=== PATIENT | male | born 1980 | race Caucasian/White ===

== ENCOUNTER 2019-05-12 10:03 | Observation (INO) | payer BC ==
--- NOTE | 2019-05-12 10:24 | ED ---
Abdominal Pain HPI - General Chief Complaint: Abdominal Pain Stated Complaint: Abdominal/Back pain Time Seen by Provider: 05/12/19 10:22 Source: patient Mode of arrival: ambulatory Limitations: no limitations - History of Present Illness Initial Comments: 39-year-old male with no severe past medical history lifetime nonsmoker presents emergency department today for chief complaint of right-sided flank/right upper quadrant pain that radiates to the right shoulder. Patient sates monied began developing pain that is mostly in the right flank back he states it radiated to be admitted towards shoulder and right side of abdomen. Patient states he initi ally strained a muscle. Symptoms were persistent patient states when he took a deep breath the pain in the right upper quadrant. Patient denies any nausea or vomiting. He states he has had some loose stools with greasy foods, denies fevers. Patient denies ripp tearing sensation, stabbing sensation he states he is a strong ache that at time increases with positions such as lying on left side. Patient denies chest pain, denies SOB. Denies hemoptysis, leg swelling, history of cancer. Patient denies any congenital abnormalities or familial history of premature CAD or vascular disorders. Patient appears well on arrival no distress. VS stable no significant changes. Stable. - Related Data Home Medications Medication Instructions Recorded Confirmed Acetaminophen Tab [Tylenol Tab] 1,000 mg PO Q6HR PRN 05/12/19 05/12/19 Allergies Allergy/AdvReac Type Severity Reaction Status Date / Time No Known Allergies Allergy Verified 05/12/19 15:22 Review of Systems ROS Statement: Those systems with pertinent positive or pertinent negative responses have been documented in the HPI. ROS Other: All systems not noted in ROS Statement are negative. Past Medical History Past Medical History: No Reported History History of Any Multi-Drug Resistant Organisms: None Reported Additional Past Surgical History / Comment(s): left hand suger Past Psychological History: No Psychological Hx Reported Smoking Status: Never smoker Past Alcohol Use History: Occasional Past Drug Use History: None Reported General Exam - General Exam Comments Initial Comments: General: The patient is awake and alert, in no distress Eye: +3 mm pupils are equal, round and reactive to light, extra-ocular movements are intact. No nystagmus. There is normal conjunctiva bilaterally. No signs of icterus. Ears, nose, mouth and throat: There are moist mucous membranes and no oral lesions. Neck: The neck is supple, there is no tenderness or JVD. Cardiovascular: There is a regular rate and rhythm. No murmur, rub or gallop is appreciated. Respiratory: Lungs are clear to auscultation, respirations are non-labored, breath sounds are equal. No wheezes, stridor, rales, or rhonchi. Gastrointestinal: Soft, non-distended,mild RUQ tenderness to palpation of the abdomen without masses or organomegaly noted. There is no rebound or guarding present. No CVA tenderness. Musculoskeletal: Normal ROM, no tenderness. Strength 5/5. Sensation intact. Radial and DP pulses equal bilaterally 2+. No paravertebral midline tenderness to patient the spine. Neurological: A&O x 3. CN II-XII intact grossly, There are no obvious motor or sensory deficits. Coordination appears grossly intact. Speech is normal. Skin: Skin is warm and dry and no rashes or lesions are noted. No LE edema. Psychiatric: Cooperative, appropriate mood & affect, normal judgment. Limitations: no limitations Course Vital Signs 05/12/19 05/12/19 10:10 14:24 Temperature 97.8 F Pulse Rate 56 L 55 L Respiratory 19 18 Rate Blood Pressure 133/84 129/89 O2 Sat by Pulse 99 99 Oximetry Medical Decision Making - Medical Decision Making 39-year-old male presents emergency department today for chief complaint of right-sided flank right upper quadrant pain that radiates towards right shoulder. Ongoing since Tuesday. CXR clear. CT negative of abdomen pelvis- no renal stones/urtheral stones. No hematuria. Ekg no acute findings. Troponin (-). No tachycardia. No hypoxia. B/l BP equal. US no signs of acute cholecystitis. Patient continues to have discomfort and states that he is no comfortable going home. Patient case discussed at length with attending he reviewed EKG at this time we will admit for intractable pain and patient agreeable with discussed surgical consultation for HIDA scan. Serial troponins added although i do feel atypical CP is a much less likely diagnosis given age, RF and clinical presentation. - Lab Data Result diagrams: 05/12/19 10:45 05/12/19 10:45 Lab Results 05/12/19 05/12/19 05/12/19 Range/Units 10:45 10:45 10:45 WBC 6.7 (3.8-10.6) k/uL RBC 5.58 (4.30-5.90) m/uL Hgb 16.8 (13.0-17.5) gm/dL Hct 51.1 (39.0-53.0) % MCV 91.6 (80.0-100.0) fL MCH 30.1 (25.0-35.0) pg MCHC 32.9 (31.0-37.0) g/dL RDW 12.4 (11.5-15.5) % Plt Count 317 (150-450) k/uL Neutrophils % 67 % Lymphocytes % 20 % Monocytes % 6 % Eosinophils % 5 % Basophils % 1 % Neutrophils # 4.5 (1.3-7.7) k/uL Lymphocytes # 1.3 (1.0-4.8) k/uL Monocytes # 0.4 (0-1.0) k/uL Eosinophils # 0.3 (0-0.7) k/uL Basophils # 0.1 (0-0.2) k/uL D-Dimer (<0.60) mg/L FEU Sodium 142 (137-145) mmol/L Potassium 5.0 (3.5-5.1) mmol/L Chloride 102 (98-107) mmol/L Carbon Dioxide 29 (22-30) mmol/L Anion Gap 11 mmol/L BUN 20 (9-20) mg/dL Creatinine 0.92 (0.66-1.25) mg/dL Est GFR (CKD-EPI)AfAm >90 (>60 ml/min/1.73 sqM) Est GFR (CKD-EPI)NonAf >90 (>60 ml/min/1.73 sqM) Glucose 100 H (74-99) mg/dL Calcium 10.1 (8.4-10.2) mg/dL Total Bilirubin 0.9 (0.2-1.3) mg/dL AST 27 (17-59) U/L ALT 29 (21-72) U/L Alkaline Phosphatase 67 (38-126) U/L Troponin I (0.000-0.034) ng/mL Total Protein 8.3 H (6.3-8.2) g/dL Albumin 4.9 (3.5-5.0) g/dL Lipase (23-300) U/L Urine Color Yellow Urine Appearance Clear (Clear) Urine pH 5.5 (5.0-8.0) Ur Specific Carbon 1.024 (1.001-1.035) Urine Protein Negative (Negative) Urine Glucose (UA) Negative (Negative) Urine Ketones Negative (Negative) Urine Blood Negative (Negative) Urine Nitrite Negative (Negative) Urine Bilirubin Negative (Negative) Urine Urobilinogen <2.0 (<2.0) mg/dL Ur Leukocyte Esterase Small H (Negative) Urine RBC 1 (0-5) /hpf Urine WBC 9 H (0-5) /hpf Urine Mucus Rare H (None) /hpf 05/12/19 05/12/19 05/12/19 Range/Units 10:45 10:45 10:50 WBC (3.8-10.6) k/uL RBC (4.30-5.90) m/uL Hgb (13.0-17.5) gm/dL Hct (39.0-53.0) % MCV (80.0-100.0) fL MCH (25.0-35.0) pg MCHC (31.0-37.0) g/dL RDW (11.5-15.5) % Plt Count (150-450) k/uL Neutrophils % % Lymphocytes % % Monocytes % % Eosinophils % % Basophils % % Neutrophils # (1.3-7.7) k/uL Lymphocytes # (1.0-4.8) k/uL Monocytes # (0-1.0) k/uL Eosinophils # (0-0.7) k/uL Basophils # (0-0.2) k/uL D-Dimer 0.55 (<0.60) mg/L FEU Sodium (137-145) mmol/L Potassium (3.5-5.1) mmol/L Chloride (98-107) mmol/L Carbon Dioxide (22-30) mmol/L Anion Gap mmol/L BUN (9-20) mg/dL Creatinine (0.66-1.25) mg/dL Est GFR (CKD-EPI)AfAm (>60 ml/min/1.73 sqM) Est GFR (CKD-EPI)NonAf (>60 ml/min/1.73 sqM) Glucose (74-99) mg/dL Calcium (8.4-10.2) mg/dL Total Bilirubin (0.2-1.3) mg/dL AST (17-59) U/L ALT (21-72) U/L Alkaline Phosphatase (38-126) U/L Troponin I <0.012 (0.000-0.034) ng/mL Total Protein (6.3-8.2) g/dL Albumin (3.5-5.0) g/dL Lipase 111 (23-300) U/L Urine Color Urine Appearance (Clear) Urine pH (5.0-8.0) Ur Specific Carbon (1.001-1.035) Urine Protein (Negative) Urine Glucose (UA) (Negative) Urine Ketones (Negative) Urine Blood (Negative) Urine Nitrite (Negative) Urine Bilirubin (Negative) Urine Urobilinogen (<2.0) mg/dL Ur Leukocyte Esterase (Negative) Urine RBC (0-5) /hpf Urine WBC (0-5) /hpf Urine Mucus (None) /hpf Disposition Clinical Impression: Right flank pain, Back pain, Shoulder pain, right, Intractable pain, Right upper quadrant pain Disposition: ADMITTED IP TO THIS [facility] Condition: Good Instructions (If sedation given, give patient instructions): Abdominal Pain (ED) Additional Instructions: Please use medication as discussed. Please follow-up with family doctor in the next 2 days. Please return to emergency room if the symptoms increase or worsen or for any other concerns. Is patient prescribed a controlled substance at d/c from ED?: No Referrals: Sandra Best DO [Primary Care Provider] - 1-2 days Time of Disposition: 14:56
[2019-05-12] MEDS ORDERED: MORPHINE SULFATE 4 MG/ML SYRINGE IVP STA (11:01)
[2019-05-12 11:06] LABS: Basophils # (A) 0.1 k/uL (0-0.2); Basophils % (A) 1 %; Eosinophils # (A) 0.3 k/uL (0-0.7); Eosinophils % (A) 5 %; HCT 51.1 % (39.0-53.0); HGB 16.8 gm/dL (13.0-17.5); Lymphocytes # (A) 1.3 k/uL (1.0-4.8); Lymphocytes % (A) 20 %; MCH 30.1 pg (25.0-35.0); MCHC 32.9 g/dL (31.0-37.0); MCV 91.6 fL (80.0-100.0); Mean Platelet Volume 6.7; Monocytes # (A) 0.4 k/uL (0-1.0); Monocytes % (A) 6 %; Neutrophils # (A) 4.5 k/uL (1.3-7.7); Neutrophils % (A) 67 %; Platelet Count 317 k/uL (150-450); RBC 5.58 m/uL (4.30-5.90); RDW 12.4 % (11.5-15.5); WBC 6.7 k/uL (3.8-10.6)
[2019-05-12 11:15] LABS: ALT 29 U/L (21-72); AST 27 U/L (17-59); African American GFR (CKD) >90 (>60 ml/min/1.73 sqM); Albumin 4.9 g/dL (3.5-5.0); Alkaline Phosphatase 67 U/L (38-126); Anion Gap 11 mmol/L; Blood Urea Nitrogen 20 mg/dL (9-20); Calcium 10.1 mg/dL (8.4-10.2); Carbon Dioxide 29 mmol/L (22-30); Chloride 102 mmol/L (98-107); Glucose 100 mg/dL (74-99); Non-African American GFR(CKD) >90 (>60 ml/min/1.73 sqM); Sodium 142 mmol/L (137-145); Total Bilirubin 0.9 mg/dL (0.2-1.3); Total Protein 8.3 g/dL (6.3-8.2)
[2019-05-12 11:16] LABS: Appearance,Urine Clear (Clear); Bilirubin,Urine Negative (Negative); Blood,Urine Negative (Negative); Color,Urine Yellow; Glucose,Urine (UA) Negative (Negative); Ketones,Urine Negative (Negative); Leukocyte Esterase,Urine Small (Negative); Mucus,Urine Rare /hpf; Nitrite,Urine Negative (Negative); PH, Urine 5.5 (5.0-8.0); Protein,Urine Negative (Negative); RBC,Urine 1 /hpf (0-5); Specific Gravity,Urine 1.024 (1.001-1.035); Urobilinogen,Urine <2.0 mg/dL (<2.0); WBC,Urine 9 /hpf (0-5)
--- NOTE | 2019-05-12 12:20 | CT ---
EXAMINATION TYPE: CT abdomen pelvis w con DATE OF EXAM: 05/12/2019 COMPARISON: None HISTORY: RUQ and Rt flank pain CT DLP: 943.8 mGycm Automated exposure control for dose reduction was used. TECHNIQUE: Helical acquisition of images was performed from the lung bases through the pelvis. CONTRAST: Performed without Oral Contrast and with IV Contrast, patient injected with 100 mL of Isovue 300. FINDINGS: The lung bases are clear. No cardiac enlargement or pericardial effusion. The liver, spleen, pancreas, and adrenal glands are within normal limits. No calcified gallstones. Symmetric renal enhancement without hydronephrosis. No perinephric inflammation. No dilated bowel, free air, or free fluid. No mesenteric inflammatory changes. No suspicious adenopat hy. Normal course and caliber of the aorta. No aggressive osseous lesion. Broad left L5 transverse process articulating with the sacrum. Mild L4- L5 disc degeneration. Bilateral CAM morphology. IMPRESSION: No acute intra-abdominal process.
--- NOTE | 2019-05-12 12:29 | XR ---
EXAMINATION TYPE: XR chest 2V DATE OF EXAM: 05/12/2019 COMPARISON: CT same date HISTORY: Right-sided flank pain, back pain TECHNIQUE: Frontal and lateral views of the chest are obtained. FINDINGS: There is no focal air space opacity, pleural effusion, or pneumothorax seen. The cardiac silhouette size is within normal limits. The osseous structures are intact, there is an underlying scoliotic curvature to the spine, pectus deformity. IMPRESSION: No acute cardiopulmonary process.
[2019-05-12] MEDS ORDERED: HYDROmorphone 0.5 MG/0.5 ML SYRINGE IVP STA (13:25)
--- NOTE | 2019-05-12 14:48 | US ---
EXAMINATION TYPE: US abdomen limited DATE OF EXAM: 05/12/2019 COMPARISON: NONE CLINICAL HISTORY: Gallbladder. RUQ pain. EXAM MEASUREMENTS: Liver Length: 15.3 cm Gallbladder Wall: .3 cm CBD: .2 cm Right Kidney: 10.6 x 5.5 x 3.6 cm Pancreas: Head is within normal limits, tail is obscured by overlying bowel gas. Liver: Within normal limits Gallbladder: No cholelithiasis or wall thickening. Evidence for sonographic Curry's sign: No CBD: Within normal limits. Right Kidney: Within normal limits. IMPRESSION: Negative right upper quadrant ultrasound. No sonographic evidence for acute cholecystitis .
[2019-05-12] MEDS ORDERED: NALOXONE 0.4 MG/ML 1 ML VIAL IV PRN (15:09)
[2019-05-12] MEDS: SODIUM CHLORIDE 0.9% 1,000 ML IV SCH (16:17)
[2019-05-12 16:56] VITALS: BMI 25.6
[2019-05-12] MEDS: HYDROmorphone 0.5 MG/0.5 ML SYRINGE IVP PRN ×2 (17:04→21:40)
[2019-05-13] MEDS ORDERED: ALPRAZolam 0.25 MG TAB PO PRN (00:22)
[2019-05-13] MEDS ORDERED: TEMAZEPAM 15 MG CAP PO PRN (00:22)
[2019-05-13] MEDS ORDERED: HYDROcodone/APAP 5-325MG 1 EACH TAB PO PRN (00:22)
[2019-05-13] MEDS ORDERED: methylPREDNISolone SOD SUCCI 125 MG/2 ML VIAL IV SCH (00:30)
[2019-05-13] MEDS: SODIUM CHLORIDE 0.9% 1,000 ML IV SCH ×3 (01:46→22:58)
[2019-05-13] MEDS: HYDROmorphone 0.5 MG/0.5 ML SYRINGE IVP PRN ×3 (01:46→08:24)
--- NOTE | 2019-05-13 03:58 | HP ---
HISTORY AND PHYSICAL I am covering for Dr. Maldonado. DATE OF SERVICE: 05/12/2019 CHIEF COMPLAINTS: Severe pain of the right chest wall, right upper quadrant and also the right shoulder. HISTORY OF PRESENT ILLNESS: This 39-year-old gentleman with a past medical history of multiple medical problems including skin disorder, sleep apnea, tone deafness, history of bronchitis, history of ringworm, history of apnea, sleep apnea, history of DJD being followed by Dr. Sandra Best in the outpatient setting, not feeling well over the past several days. The patient became sick since Tuesday. The patient is complaining of right -sided pain. It started in the flank and right upper quadrant pain which is also radiated to the back and now the patient is also complaining of sharp sort of pain in the right shoulder area as well. The patient reports the pain is increasing with inspirations and coughing and the patient thought initially patient strained muscle and the patient came to [facility] and admitted for further evaluation and treatment. There is no history of fever, rigors. No history of sick contacts. No history of any hematochezia, melena or shortness of breath at this time. After admission, evaluation showed normal CBC and glucose 100 and total protein is 8.3. Troponins are negative at this time. UA showed some WBCs and an abdominal pelvis CAT scan was done which showed which was reviewed by personally by me showed no acute abnormality. HIDA scan has been ordered to rule out the possible gallbladder disease. A chest x-ray was also ordered which again I reviewed personally, showed no acute cardiopulmonary process. Abdominal ultrasound was also done which showed no sonographic evidence of cholecystitis at this time. PAST MEDICAL HISTORY: History of skin disorder, history of sleep apnea, history of DJD. MEDICATIONS: Home medications are Tylenol. ALLERGIES: None. FAMILY HISTORY: No history of heart disease or strokes in family. SOCIAL HISTORY: Previous history of smoking. No history of alcohol intake. REVIEW OF SYSTEMS: ENT: No diminished vision. No diminished hearing. CARDIOVASCULAR system is as mentioned earlier. RESPIRATORY: As mentioned earlier. GASTROINTESTINAL: As mentioned earlier. no dysuria or hematuria. NERVOUS SYSTEM: No numbness or weakness. ALLERGY/IMMUNOLOGY: No asthma or hayfever. MUSCULOSKELETAL as mentioned earlier. HEMATOLOGY/ONCOLOGY: No history of anemia. ENDOCRINE: No history of diabetes or hypothyroidism. CONSTITUTIONAL: As mentioned earlier. DERMATOLOGY: Negative. RHEUMATOLOGY negative. PSYCHIATRY as mentioned earlier. PHYSICAL EXAMINATION: The patient is alert and oriented times three. Pulse 64, blood pressure 118/71, respirations 16, temperature 97.7, pulse ox 98% on room air. HEENT is conjunctivae normal. Oral mucosa moist. NECK is no jugular venous distention. No carotid bruit. No lymph node enlargement. CARDIOVASCULAR system: S1, S2 muffled. No S3, no S4. RESPIRATION: Breath sounds diminished in the bases. A few scattered rhonchi. No crackles. On the right side, breath sounds diminished markedly. ABDOMEN: Soft. Mild diffuse tenderness in the right upper quadrant. Otherwise, mild guarding but no rigidity. No mass palpable. No ascites. Bowel sounds present. LEGS: No edema. No swelling. NERVOUS SYSTEM: Higher functions as mentioned earlier. Moves all four limbs. No focal motor or sensory deficits. LYMPHATICS: No lymph nodes palpable in the neck, axillae or groin. SKIN: No ulcer, rash or bleeding. JOINTS: No active deforming arthropathy. LABS: At this time reviewed and showed: Labs are x-ray and CT scan reviewed personally by me, suggestive of minimal right-sided lesions, suspicious. Labs: CBC within normal limits and glucose 100 and total protein is 8.3. ASSESSMENT: 1. Severe right-sided lower chest upper and abdominal pain, rule out acute cholecystitis. 2. Possible right pleurisy with right pneumonia. 3. Increased WBC in the urine, rule out urinary tract infection. 4. History of sleep apnea. 5. History of bronchitis. 6. History of ringworm. 7. History of apnea. 8. History of degenerative joint disease. 9. Remote history of nicotine dependence. RECOMMENDATIONS AND DISCUSSION: This 39-year-old gentleman who presented with multiple complex medical issues, at this time, I recommend to continue current medications, management and symptomatic treatment. I recommend broad-spectrum IV antibiotics, symptomatic treatment of the pain. IV fluids. Otherwise I would also recommend ESR and CRP, HIDA scan has been pending at this time. I would also recommend short course of IV steroids because of severe pain and possible 2 pleurisy, blood cultures also will be obtained. Surgical evaluation also has been sought. The prognosis guarded because of multiple complex medical issues. Further recommendations to follow. A copy of dictation being forwarded to Dr. Maldonado who is following for Dr. Sandra Best's patients in the hospital. MMODL / IJN: [id number] /
[2019-05-13 07:23] VITALS: RESP 18
[2019-05-13] MEDS ORDERED: INSULIN ASPART (NovoLOG) 100 UNIT/ML VIAL SQ SCH (07:30)
[2019-05-13] MEDS: HEPARIN SODIUM,PORCINE 5,000 UNIT/ML 1 ML VIAL SQ SCH ×2 (08:14→20:18)
[2019-05-13] MEDS: PANTOPRAZOLE 40 MG/10 ML VIAL IVP SCH (08:14)
--- NOTE | 2019-05-13 11:26 | P.GSCN ---
History of Present Illness Consult date: 05/13/19 History of present illness: 39-year-old male presents to the emergency department with complaints of right flank, right upper quadrant and right shoulder pain. He states that the pain started approximately 7 days ago and worsened throughout the week which was the reason for his presentation to the emergency department. He denies any recent changes in diet. He denies any nausea or vomiting. He initially believed this to be a muscle strain and did try hot tub therapy along with a deep tissue massage without any success. He denies ever having this pain previously. He denies any change in bowel movements. He denies any history of abdominal surgery. Imaging was performed in the emergency department with a CT of the abdomen and pelvis and ultrasound of the abdomen. Both imaging modalities were negative for any acute process. He denies any fevers, chills, chest pain or shortness of breath. Review of Systems All systems: negative Past Medical History Past Medical History: No Reported History, Hearing Disorder / Deafness, Respiratory Disorder, Skin Disorder, Sleep Apnea/CPAP/BIPAP Additional Past Medical History / Comment(s): certain tones deafness, broncitis, ringworm 1997, apnea History of Any Multi-Drug Resistant Organisms: None Reported Past Surgical History: Orthopedic Surgery Additional Past Surgical History / Comment(s): left hand surgery 4th metacarpal Past Anesthesia/Blood Transfusion Reactions: No Reported Reaction Past Psychological History: No Psychological Hx Reported Smoking Status: Former smoker Past Alcohol Use History: Occasional Past Drug Use History: None Reported - Past Family History Mother History Unknown: Yes Medications and Allergies Home Medications Medication Instructions Recorded Confirmed Type Acetaminophen Tab [Tylenol Tab] 1,000 mg PO Q6HR PRN 05/12/19 05/12/19 History Allergies Allergy/AdvReac Type Severity Reaction Status Date / Time No Known Allergies Allergy Verified 05/12/19 15:22 Surgical - Exam Osteopathic Statement: *. No significant issues noted on an osteopathic structural exam other than those noted in the History and Physical/Consult. Vital Signs Temp Pulse Resp BP Pulse Ox 97.8 F 56 L 19 133/84 99 05/12/19 10:10 05/12/19 10:10 05/12/19 10:10 05/12/19 10:10 05/12/19 10:10 - General well developed, well nourished, no distress - Eyes PERRL, normal ocular movement - ENT normal nares, normal mucosa, no hearing loss - Neck no masses, trachea midline - Respiratory No difficulty with respiration - Abdomen Soft, nontender, nondistended, no rebound, no guarding - Musculoskeletal No pain to palpation in the right flank or right shoulder - Psychiatric oriented to time, oriented to person, oriented to place Results - Labs 05/12/19 10:45 05/12/19 10:45 Assessment and Plan (1) Right upper quadrant pain Narrative/Plan: 39-year-old male with right upper quadrant pain - I did review CT of the abdomen pelvis along with ultrasound of the abdomen with no evidence of acute abnormalities. The patient does complain of continued pain. To rule out any biliary disease, HIDA scan will be ordered. The case was discussed with the admitting physician and this plan is agreed upon. Further recommendations after HIDA scan. Current Visit: Yes Status: Acute Code(s): R10.11 - RIGHT UPPER QUADRANT PAIN SNOMED Code(s): 910917459
[2019-05-13] MEDS: KETOROLAC 30 MG/ML 1 ML VIAL IVP SCH ×3 (12:05→23:16)
[2019-05-13] MEDS: methylPREDNISolone SOD SUCCI 125 MG/2 ML VIAL IV SCH ×3 (13:01→23:19)
--- NOTE | 2019-05-13 13:28 | PN ---
PROGRESS NOTE DATE OF SERVICE: 05/13/2019 I am covering for Dr. Maldonado. This 39-year-old gentleman, admitted with right-sided chest pain also being evaluated for evidence of cholecystitis. HIDA scan ordered by Dr. Wilkins. The patient is also complaining of lower chest pain on the right side which is increasing with respirations. PHYSICAL EXAM: Alert and oriented x3. Pulse 54, blood pressure 124/71, respiration 18, temperature 98.3, pulse ox 93% on room air. HEENT: Conjunctivae normal. Oral mucosa moist. NECK is no jugular venous distention. No carotid bruit. No lymph node enlargement. CARDIOVASCULAR: S1, S2 muffled. No S3, no S4. RESPIRATORY: Breath sounds diminished in the bases. Breathing efforts are diminished on the right side. ABDOMEN: Soft, nontender. No guarding. No rigidity. No mass palpable. Minimal discomfort on palpation on the right upper quadrant. LAB STUDIES: CBC within normal limits. ESR is 2. CRP is normal. UA noted. 9 WBCs. ASSESSMENT: 1. Severe right-sided lower chest and upper abdominal pain, rule out acute cholecystitis. 2. Possible right pleurisy with right pneumonia. 3. Increased WBC in the urine, rule out urinary tract infection. 4. History of sleep apnea. 5. History of bronchitis. 6. History of ringworm. 7. History of sleep apnea. 8. History of degenerative joint disease. 9. Remote history of nicotine dependence. RECOMMENDATIONS AND DISCUSSION: I recommend to continue current medications, symptomatic treatment. Continue with empiric antibiotics. I would recommend empiric antibiotics also and steroids. Continue the current medications. Further recommendations to follow. MMODL / IJN: [id number] /
[2019-05-14 04:35] LABS: Basophils % (A) 0 %; Eosinophils % (A) 0 %; HCT 44.2 % (39.0-53.0); HGB 14.4 gm/dL (13.0-17.5); Lymphocytes # (A) 0.5 k/uL (1.0-4.8); Lymphocytes % (A) 4 %; MCH 29.4 pg (25.0-35.0); MCHC 32.6 g/dL (31.0-37.0); MCV 90.2 fL (80.0-100.0); Mean Platelet Volume 6.2; Monocytes # (A) 0.1 k/uL (0-1.0); Monocytes % (A) 1 %; Neutrophils # (A) 10.5 k/uL (1.3-7.7); Neutrophils % (A) 95 %; Platelet Count 303 k/uL (150-450); RDW 12.2 % (11.5-15.5); WBC 11.1 k/uL (3.8-10.6)
[2019-05-14 04:50] LABS: African American GFR (CKD) >90 (>60 ml/min/1.73 sqM); Anion Gap 8 mmol/L; Blood Urea Nitrogen 18 mg/dL (9-20); Calcium 9.5 mg/dL (8.4-10.2); Carbon Dioxide 24 mmol/L (22-30); Chloride 106 mmol/L (98-107); Glucose 124 mg/dL (74-99); Non-African American GFR(CKD) >90 (>60 ml/min/1.73 sqM); Potassium 4.3 mmol/L (3.5-5.1); Sodium 138 mmol/L (137-145)
[2019-05-14] MEDS: KETOROLAC 30 MG/ML 1 ML VIAL IVP SCH ×2 (04:52→13:35)
[2019-05-14] MEDS: methylPREDNISolone SOD SUCCI 125 MG/2 ML VIAL IV SCH ×2 (06:47→13:35)
[2019-05-14] MEDS: PANTOPRAZOLE 40 MG/10 ML VIAL IVP SCH (06:47)
[2019-05-14] MEDS: HEPARIN SODIUM,PORCINE 5,000 UNIT/ML 1 ML VIAL SQ SCH (06:47)
[2019-05-14] MEDS: SODIUM CHLORIDE 0.9% 1,000 ML IV SCH (06:48)
[2019-05-14 07:21] VITALS: BP 125/75; PULSE 60; TEMP 97.7
--- NOTE | 2019-05-14 13:46 | NM ---
EXAMINATION TYPE: NM hepatobiliary w CCK DATE OF EXAM: 05/14/2019 COMPARISON: Ultrasound abdomen 07/09/2018 HISTORY: Right upper quadrant pain TECHNIQUE: After the intravenous administration of 4 mCi Tc 99m Mebrofenin hepatobiliary scintigraphy is performed. Immediate images post injection. FINDINGS: There is satisfactory initial accumulation of tracer by the liver. The gallbladder is visualized wit hin 4 minutes. The small bowel activity is noted within 8 minutes. At one hour CCK was administered , patient was injected with 1.6 mcg of Kinevac, and gallbladder ejection fraction is calculated at 59 %, in the normal range. Therefore there is no scintigraphic evidence of cystic or common bile duct obstruction to suggest acute cholecystitis or gallbladder dyskinesia. IMPRESSION: Exam is within normal limits.
--- NOTE | 2019-05-14 14:28 | P.PN ---
Subjective Progress Note Date: 05/14/19 Patient seen and examined at bedside. Since receiving steroid dose, he states he feels improved. Denies nausea vomiting. Objective - Vital Signs Vital signs: Vital Signs Temp 97.7 F 05/14/19 07:00 Pulse 60 05/14/19 07:00 Resp 18 05/14/19 07:00 BP 125/75 05/14/19 07:00 Pulse Ox 97 05/14/19 07:00 Intake & Output 05/13/19 05/14/19 05/14/19 18:59 06:59 18:59 Other: Voiding Method Toilet Toilet Toilet # Voids 1 1 - Constitutional General appearance: Present: cooperative, no acute distress - EENT Eyes: Present: PERRLA - Respiratory Details: No difficulty with respiration - Gastrointestinal Gastrointestinal Comment(s): Soft, nontender, nondistended, no rebound, no guarding - Psychiatric Psychiatric: Present: A&O x's 3 - Labs CBC & Chem 7: 05/14/19 04:21 05/14/19 04:19 Labs: Abnormal Lab Results - Last 24 Hours (Table) 05/14/19 05/14/19 Range/Units 04:19 04:21 WBC 11.1 H (3.8-10.6) k/uL Neutrophils # 10.5 H (1.3-7.7) k/uL Lymphocytes # 0.5 L (1.0-4.8) k/uL Glucose 124 H (74-99) mg/dL Microbiology - Last 24 Hours (Table) 05/13/19 06:56 Blood Culture - Preliminary Blood No Growth after 24 hours Assessment and Plan (1) Right upper quadrant pain Narrative/Plan: 39-year-old male with right upper quadrant pain - No evidence of acute cholecystitis on CT scan or ultrasound. HIDA scan was also performed with no acute findings of cholecystitis or biliary dyskinesia. The patient's pain does not appear to be biliary in nature. Diet can be advanced. Medical recommendations on source of pain. Current Visit: Yes Status: Acute Code(s): R10.11 - RIGHT UPPER QUADRANT PAIN SNOMED Code(s): 373166096
--- NOTE | 2019-05-14 15:57 | P.DS ---
Providers Date of admission: 05/14/19 11:03 Expected date of discharge: 05/14/19 Attending physician: Óscar Maldonado MD Consults: 05/12/19 15:09 Consult Physician Routine Consulting Provider: Halima Wilkins Consult Reason/Comments: intractable right upper quad pain with rad to shoulder Do you want consulting provider notified?: Yes Primary care physician: Sandra Best Hospital Course: Final Diagnoses: -Severe right-sided lower chest wall and upper abdominal pain, acute cholecystitis ruled out. Possible right pleurisy with right pneumonia. -Mild elevated WBC in urine, doubt acute UTI, asymptomatic. -Degenerative joint disease -Remote history of nicotine dependence Hospital course: This a 39-year-old gentleman admitted with right posterior shoulder pain radiating to right lower chest/rib cage, right upper quadrant abdominal pain and multiple other medical issues. Maintained on gentle IV fluid hydration, IV antibiotics and steroids. Evaluated by surgery-no evidence of acute cholecystitis per computed tomography scan or ultrasound. HIDA scan reported as normal, EF 59%, no acute cholecystitis or biliary dyskinesia. Currently denies chest pain, palpitations or shortness of breath. Denies lightheadedness, dizziness or focal deficits. Denies nausea, vomiting, diarrhea. Significant clinical improvement. Cleared by surgery for discharge. Patient is being discharged home in a stable condition with guarded prognosis. Patient to follow-up with PCP on Tuesday. EXAM: GENERAL: Alert and oriented 3, no acute distress CARDIOVASCULAR: S1, S2 regular. No murmur RESPIRATION: Breath sounds diminished in the bases. ABDOMEN: Soft, nontender . No guarding. no masses palpable. No ascites, No hepatosplenomegaly.Bowel sounds heard. NERVOUS SYSTEM: No focal deficits. The impression and plan of care has been dictated as directed. : I performed a history and examination of this patient, discussed the same with the dictator. I agree with the dictator's note ,documented as a scribe. Any additional findings or plans will be noted. Patient Condition at Discharge: Stable Plan - Discharge Summary Discharge Rx Participant: No New Discharge Prescriptions: New Amoxic-Pot Clav 875-125Mg [Augmentin 875-125] 1 tab PO Q12HR #10 tablet predniSONE 10 mg PO DIRECTED #30 tab Albuterol Inhaler [Ventolin Hfa Inhaler] 2 puff INHALATION Q4H PRN #1 inhaler PRN Reason: Shortness Of Breath Continue Acetaminophen Tab [Tylenol] 1,000 mg PO Q6HR PRN PRN Reason: Pain Discharge Medication List Acetaminophen Tab [Tylenol] 1,000 mg PO Q6HR PRN 05/12/19 [History] Albuterol Inhaler [Ventolin Hfa Inhaler] 2 puff INHALATION Q4H PRN #1 inhaler 05/14/19 [Rx] Amoxic-Pot Clav 875-125Mg [Augmentin 875-125] 1 tab PO Q12HR #10 tablet 05/14/19 [Rx] predniSONE 10 mg PO DIRECTED #30 tab 05/14/19 [Rx] Follow up Appointment(s)/Referral(s): Sandra Best DO [Primary Care Provider] - 05/16/19 1:45 pm (follow up made with Dutch Lee) Patient Instructions/Handouts: Pleurisy (DC), Abdominal Pain (ED) Activity/Diet/Wound Care/Special Instructions: Please use medication as discussed. Please follow-up with family doctor in the next 2 days. Please return to emergency room if the symptoms increase or worsen or for any other concerns.
== END 2019-05-14 16:00 | disposition home or self-care (01) ==
LOC: EC 10:03 → UNDOADMOB 15:53 → 1SOBS 15:53 → INTOOBSV 05-14 11:03 → OBSVTOIN 05-14 11:03 → UNDODISIN 05-14 16:00
PROVIDERS: ADMIT Family Medicine; ATTEND Family Medicine
DX: R07.89 Other chest pain (principal); G47.30 Sleep apnea, unspecified; R82.71 Bacteriuria; M19.90 Unspecified osteoarthritis, unspecified site; M54.9 Dorsalgia, unspecified; H91.90 Unspecified hearing loss, unspecified ear; Z87.891 Personal history of nicotine dependence; Z86.19 Personal history of other infectious and parasitic diseases; Z99.89 Dependence on other enabling machines and devices; Z98.890 Other specified postprocedural states
CPT/HCPCS: 96361; 96365; 96366; 96372 ×2; 96375 ×2; 96376 ×3; 99285; 36415; 93005; 85379; 80053; 80048; 85652; 83690; 84484; 85025 ×2; 86140; 81001; 87040; 71046; 76705; 74177; 78227; G0378 ×3; A9537; J2270; J1644 ×2; J2930 ×2; J2805; J0696 ×2; J1885; C9113 ×2; J1170 ×2; Q9967; 96374

== ENCOUNTER → 2023-08-02 | Outpatient (CLI) | payer BC ==
--- NOTE | 2023-08-02 15:34 | CA ---
Transthoracic Echo Report Name: Donnie Guerrero Age: 43 Gender: M : 1980 Exam Date: 08/02/2023 08:40 Exam Location: [place] [facility] Ht (in): 61 Wt (lb): 175 Ordering Physician: Óscar Maldonado MD Attending/Referring Phys: Sharmin Denny REPLACED BY [facility] Director Of Acquisitions Nunu Ruggiero RDCS Procedure CPT: Indications: R94.39 ABNORMAL RESULT OF OTHER CARDIOVASCULAR FUN Cardiac Hx: Technical Quality: Fair Contrast 1: Total Dose (mL): Contrast 2: Total Dose (mL): MEASUREMENTS (Male / Female) Normal Values FINDINGS Left Ventricle Left ventricular ejection fraction is estimated at 50-55 %. Right Ventricle Normal right ventricular size and function. Right Atrium Normal right atrial size. Left Atrium Left atrial size at the upper limits of normal. Mitral Valve Trace to mild mitral regurgitation. Aortic Valve Trileaflet aortic valve. Tricuspid Valve Trace tricuspid regurgitation. Pulmonic Valve Trace pulmonic regurgitation. Pericardium Normal pericardium. Aorta Normal size aortic root and proximal ascending aorta. CONCLUSIONS Normal left ventricular EF 50-55% Trace to mild mitral regurgitation Trace tricuspid regurgitation No pericardial effusion Previewed by: Dr. Chandan Tatum DO (Electronically Signed) Final Date: 02 August 2023 15:33
--- NOTE | 2023-08-02 15:36 | CA ---
Exercise Stress Test Report Name: Donnie Guerrero Exam Date: 08/02/2023 09:11 Exam Location: [place] Stress Ht (in): 71 Wt (lb): 175 BSA: 1.99 Ordering Phys: Óscar Maldonado MD Referring Phys: Sharmin Denny [facility] Technologist: Jose Bridges Age: 43 Gender: M : 1980 Procedure CPT: Indications: R94.39 ABNORMAL RESULT OF OTHER CARDIOVASCULAR FUN ICD-10 Codes: Patient History: Abnormal EKG Medications: Meds past 24 hrs: Pretest Chest Pain: STRESS TEST Peter Protocol Exercise Duration (min:sec): 12:[address] Depressions (mm): Angina Score: Rizzo Score: Resting HR (bpm): 56 Peak HR (bpm): 152 Resting BP (mmHg): 132 / 79 Peak BP (mmHg): 173 / 74 MPHR: 177 Target HR: 150 % MPHR: 86 METS: 12.1 Total Dose: Peak Dose: Atropine: Double Product: 00912 BP Response: Stress Termination: Reached target heart rate Stress Symptoms: No chest pain or symptoms Stress Summary: ECG ANALYSIS Resting ECG: Stress ECG: CONCLUSIONS Patient underwent exercise stress EKG with a Peter protocol treadmill stress test. Patient exercised into Stage 4 for a total of 12 minutes reaching a total of 12.1 METS. Patient's maximum heart rate was 152 which represented 85% age-predicted maximum heart rate. Stress EKG findings: At baseline patient's EKG showed normal sinus rhythm, normal axis, no significant ST or T wave abnormalities. At peak exercise, EKG showed no significant change from baseline. Conclusions: 1. Normal EKG response to exercise without evidence of inducible ischemia. 2. Excellent exercise capacity. Dr. Chandan Tatum DO (Electronically Signed) Final Date: 02 August 2023 15:35
== END | disposition home or self-care (01) ==
LOC: RADECHMAIN 08:30
PROVIDERS: ATTEND Family Medicine
DX: I34.0 Nonrheumatic mitral (valve) insufficiency (principal); I36.1 Nonrheumatic tricuspid (valve) insufficiency; R42 Dizziness and giddiness; R94.39 Abnormal result of other cardiovascular function study
CPT/HCPCS: 93017; 93306